=== PATIENT | female | born 1995 | race African-American/Black ===

== ENCOUNTER 2021-01-12 23:11 | Observation (INO) ==
[2021-01-12 23:23] VITALS: BP 107/58
[2021-01-13 00:44] LABS: Bacteria,Urine Occasional /HPF (Few); Bilirubin,Urine Negative (Negative); Blood, Urine Negative (Negative); Glucose,Urine (UA) Negative (Negative); Ketones,Urine Negative (Negative); Mucus,Urine Many /LPF (Occasional); Nitrite,Urine Negative (Negative); Protein,Urine 30 MG/DL; RBC,Urine 8 /HPF (0-4); Squamous Epithelial Cell,Urine Occasional /HPF (0-10); Urine Appearance Slightly Hazy (Clear); Urine Color Yellow (Yellow); Urine Specific Gravity 1.021 (1.001-1.035)
[2021-01-13 01:00] LABS: Barbiturates Screen,Urine Negative (Negative); Benzodiazepines Screen,Urine Negative (Negative); Cannabinoid Screen,Urine Positive (Negative); Opiate Screen,Urine Negative (Negative); Phencyclidine Screen,Urine Negative (Negative)
[2021-01-13] MEDS ORDERED: LACTATED RINGERS 1,000 ML IV ONE (01:13)
[2021-01-13] MEDS ORDERED: ONDANSETRON 4 MG/2 ML VIAL IV ONE (01:14)
[2021-01-13 01:27] LABS: Basophils % 0.2 % (0.0-0.8); Eosinophils # 0.1 10*3/uL (0.0-0.87); Eosinophils % 0.8 % (0.00-10.9); Hematocrit 31.4 VOL% (35.7-47.0); Hemoglobin 10.8 GM/DL (12.0-16.0); Immature Granulocytes % 0.6 %; Immature Granulocytes Absolute 0.08 #; Lymphocytes # 1.5 10*3/uL (1.4-4.0); Lymphocytes % 11.1 % (21.3-54.2); Mean Corpuscular HGB Conc 34.4 GM/DL (32-36); Mean Corpuscular Volume 83.1 FL (87-102); Monocytes % 4.4 % (1.7-12.7); Neutrophils % 82.9 % (38.7-73.9); Platelet Count 63 T/CUMM (130-400); Red Blood Count 3.78 MC/CUMM (3.8-5.5); Red Cell Distribution Width 13.2 % (9.3-17.3); White Blood Count 13.2 T/CUMM (4-12)
[2021-01-13 01:42] LABS: Albumin 2.9 G/DL (3.4-5.0); Bilirubin,Total 0.4 MG/DL (0.2-1.0); Calcium 8.3 MG/DL (8.5-10.1); Osmolality,Calculated 272.7 MOS/KG (273-304); Potassium 3.6 MMOL/L (3.5-5.1); Total Protein 6.4 G/DL (6.4-8.2)
[2021-01-13 01:47] LABS: Eosinophils 1 % (0-10); Lymphocytes 10 % (20-55); Platelet Estimate Decreased; Segmented Neutrophils 86 % (50-85); Total Cells Counted 100
== END 2021-01-13 02:45 | disposition home or self-care (01) ==
LOC: EDBD → EDUNIT# → N.LD 23:11 → N.ED 23:11
PROVIDERS: ADMIT Obstetrics & Gynecology; ATTEND Obstetrics & Gynecology

== ENCOUNTER 2021-05-03 23:50 | Inpatient (IN) ==
[2021-05-04] MEDS ORDERED: MEPERIDINE 50 MG/1 ML VIAL IV PRN (00:05)
[2021-05-04] MEDS ORDERED: ONDANSETRON 4 MG/2 ML VIAL IV PRN (00:05)
[2021-05-04] MEDS ORDERED: LACTATED RINGERS 1,000 ML IV ONE (00:05)
[2021-05-04] MEDS ORDERED: BUTORPHANOL 2 MG/ML VIAL IV PRN (00:05)
[2021-05-04] MEDS ORDERED: MEPERIDINE 50 MG/1 ML VIAL ONE (00:11)
[2021-05-04] MEDS ORDERED: CITRIC ACID/SODIUM CITRATE 30 ML UDCUP ONE (00:11)
[2021-05-04] MEDS ORDERED: fentaNYL 100 MCG/2 ML VIAL ONE (00:11)
[2021-05-04] MEDS ORDERED: FAMOTIDINE 20 MG/2 ML VIAL IV ONE ×2 (00:12→01:04)
[2021-05-04] MEDS ORDERED: AMPICILLIN 2,000 MG VIAL ONE (00:12)
[2021-05-04] MEDS ORDERED: ePHEDrine 50 MG/ML VIAL ONE ×2 (00:12→00:13)
[2021-05-04] MEDS ORDERED: ONDANSETRON 4 MG/2 ML VIAL ONE (00:12)
[2021-05-04] MEDS ORDERED: SODIUM CHLORIDE 0.9% 0 ML IV ONE (00:13)
[2021-05-04] MEDS ORDERED: fentaNYL 2 MCG/ROPIV 0.2% EPID 0 ML EPIDURAL ONE (00:13)
[2021-05-04] MEDS ORDERED: OXYTOCIN/LR 20 UNIT/1,000 ML BAG IV SCH (00:30)
[2021-05-04] MEDS ORDERED: LACTATED RINGERS 1,000 ML IV SCH (00:30)
[2021-05-04] MEDS ORDERED: OXYTOCIN/LR 30 UNIT/1,000 ML BAG IV ONE (00:37)
[2021-05-04] MEDS ORDERED: miSOPROStoL 200 MCG TABLET ONE (00:39)
[2021-05-04] MEDS ORDERED: TRANEXAMIC ACID 1,000 MG/10 ML VIAL ONE (00:39)
[2021-05-04] MEDS ORDERED: SODIUM CHLORIDE 0.9% 100 ML IV ONE (00:39)
[2021-05-04] MEDS ORDERED: CARBOPROST TROMETHAMINE 250 MCG/ML AMP IM ONE (00:40)
[2021-05-04] MEDS ORDERED: METHYLERGONOVINE 0.2 MG/1 ML AMP ONE (00:40)
[2021-05-04 00:44] LABS: Albumin 2.7 G/DL (3.4-5.0); Bilirubin,Total 0.4 MG/DL (0.20-1.00); Calcium 9.1 MG/DL (8.5-10.1); Osmolality,Calculated 269.8 MOS/KG (273-304); Potassium 3.6 MMOL/L (3.5-5.1); Total Protein 7.1 G/DL (6.4-8.2)
[2021-05-04 00:53] LABS: Basophils % 0.1 % (0.0-0.8); Eosinophils # 0.1 10*3/uL (0.0-0.87); Eosinophils % 0.7 % (0.00-10.9); Hematocrit 32.8 VOL% (35.7-47.0); Hemoglobin 10.7 GM/DL (12.0-16.0); Immature Granulocytes % 0.4 %; Immature Granulocytes Absolute 0.06 #; Lymphocytes # 3.1 10*3/uL (1.4-4.0); Lymphocytes % 22.8 % (21.3-54.2); Mean Corpuscular HGB Conc 32.6 GM/DL (32-36); Mean Corpuscular Volume 80.4 FL (87-102); Monocytes % 6.8 % (1.7-12.7); NRBC # 0.02 10*3/uL; Neutrophils % 69.2 % (38.7-73.9); Platelet Count 55 T/CUMM (130-400); Red Blood Count 4.08 MC/CUMM (3.8-5.5); White Blood Count 13.5 T/CUMM (4-12)
[2021-05-04] MEDS ORDERED: CITRIC ACID/SODIUM CITRATE 30 ML UDCUP PO ONE (00:53)
[2021-05-04 01:55] LABS: Eosinophils 1 % (0-10); Hypochromasia Slight; Lymphocytes 34 % (20-55); Microcytosis 1+; Nucleated Red Blood Cells 1 (0-5); Platelet Estimate Decreased; Segmented Neutrophils 64 % (50-85); Total Cells Counted 100
[2021-05-04 01:56] LABS: Polychromasia Few
[2021-05-04 02:04] LABS: Cord Arterial Blood HCO3 21.7 MMOL/L; Cord Venous Blood HCO3 23.6 MMOL/L; Cord Venous Blood PCO2 35.7 MMHG; Cord Venous Blood PO2 26.9 MMHG
[2021-05-04] MEDS ORDERED: BENZOCAINE 20%/MENTHOL 0.5% SPRAY 56 GM CAN TOP PRN (02:08)
[2021-05-04] MEDS ORDERED: oxyCODONE/ACETAMINOPHEN 5-325 MG TABLET PO PRN (02:08)
[2021-05-04] MEDS ORDERED: RHO(D) IMMUNE GLOBULIN 300 MCG SYRINGE IM ONE (02:08)
[2021-05-04] MEDS ORDERED: MEASLES/MUMPS/RUBELLA VACCINE 0.5 ML VIAL SUBCUT ONE (02:08)
[2021-05-04] MEDS ORDERED: DIPH/TET/ACEL PERT BOOSTER VACCINE 0.5 ML VIAL IM ONE (02:08)
[2021-05-04] MEDS ORDERED: ACETAMINOPHEN 325 MG TABLET PO PRN (02:08)
[2021-05-04] MEDS ORDERED: BISACODYL 10 MG SUPP RECTAL PRN (02:08)
[2021-05-04] MEDS ORDERED: HYDROCORTISONE 2.5% RECTAL CREAM 30 GM TUBE TOP PRN (02:08)
[2021-05-04] MEDS ORDERED: WITCH HAZEL PADS 100/JAR TOP PRN (02:08)
[2021-05-04] MEDS ORDERED: LANOLIN 50% CREAM 0.3 OZ TUBE TOP PRN (02:08)
[2021-05-04 04:20] LABS: Basophils % 0.1 % (0.0-0.8); Eosinophils % 0.1 % (0.00-10.9); Hematocrit 32.8 VOL% (35.7-47.0); Hemoglobin 10.8 GM/DL (12.0-16.0); Immature Granulocytes % 0.5 %; Lymphocytes # 1.3 10*3/uL (1.4-4.0); Lymphocytes % 6.5 % (21.3-54.2); Mean Corpuscular HGB Conc 32.9 GM/DL (32-36); Mean Corpuscular Volume 79.8 FL (87-102); Monocytes % 4.2 % (1.7-12.7); Neutrophils % 88.6 % (38.7-73.9); Platelet Count 49 T/CUMM (130-400); Red Blood Count 4.11 MC/CUMM (3.8-5.5); Red Cell Distribution Width 14.1 % (9.3-17.3); White Blood Count 19.5 T/CUMM (4-12)
[2021-05-04 04:44] LABS: Hypochromasia 1+; Lymphocytes 12 % (20-55); Microcytosis 1+; Platelet Estimate Decreased; Segmented Neutrophils 83 % (50-85); Total Cells Counted 100
[2021-05-04] MEDS: IBUPROFEN 800 MG TABLET PO PRN ×2 (06:12→19:55)
[2021-05-04] MEDS: MULTIVITAMIN (PRENATAL) TABLET PO SCH (08:29)
[2021-05-04] MEDS: DOCUSATE SODIUM 100 MG CAPSULE PO SCH ×2 (08:29→20:13)
[2021-05-04 09:09] LABS: Basophils % 0.1 % (0.0-0.8); Eosinophils % 0.1 % (0.00-10.9); Hematocrit 32.1 VOL% (35.7-47.0); Hemoglobin 10.7 GM/DL (12.0-16.0); Immature Granulocytes % 0.6 %; Immature Granulocytes Absolute 0.11 #; Lymphocytes # 1.5 10*3/uL (1.4-4.0); Lymphocytes % 7.7 % (21.3-54.2); Mean Corpuscular HGB Conc 33.3 GM/DL (32-36); Monocytes % 4.9 % (1.7-12.7); Neutrophils % 86.6 % (38.7-73.9); Platelet Count 49 T/CUMM (130-400); Red Blood Count 4.01 MC/CUMM (3.8-5.5); Red Cell Distribution Width 13.9 % (9.3-17.3)
[2021-05-04] MEDS ORDERED: predniSONE 10 MG TABLET PO ONE (10:00)
[2021-05-05] MEDS ORDERED: predniSONE 10 MG TABLET ONE (08:22)
[2021-05-05] MEDS: DOCUSATE SODIUM 100 MG CAPSULE PO SCH ×2 (08:44→21:56)
[2021-05-05] MEDS: MULTIVITAMIN (PRENATAL) TABLET PO SCH (08:44)
[2021-05-05] MEDS: predniSONE 5 MG TABLET PO SCH (08:44)
[2021-05-06] MEDS: DOCUSATE SODIUM 100 MG CAPSULE PO SCH (08:28)
[2021-05-06] MEDS: MULTIVITAMIN (PRENATAL) TABLET PO SCH (08:28)
[2021-05-06] MEDS: predniSONE 5 MG TABLET PO SCH (08:28)
[2021-05-06 09:22] VITALS: BP 116/55
== END 2021-05-06 12:51 | disposition home or self-care (01) | DRG 807 ==
LOC: N.LDOUT 23:50 → N.LD 23:54 → N.OB 05-04 05:04
PROVIDERS: ADMIT Obstetrics & Gynecology; ATTEND Obstetrics & Gynecology